=== PATIENT | female | born 1990 | race Caucasian/White ===

== ENCOUNTER → 2017-02-26 | Outpatient (CLI) | payer BC ==
[~2017-02-26] MED LIST: FOLITAB13 PO; LEVO1IUD PV; PYRI100T4 PO; SPRN100 PO; VITA1TAB7 PO; VITACAP26 PO
== END | disposition home or self-care (01) ==
LOC: C.PATHSPEC 14:23
PROVIDERS: ATTEND Obstetrics & Gynecology
DX: R87.610 Atypical squamous cells of undetermined significance on cytologic smear of cervix (ASC-US) (principal); N87.0 Mild cervical dysplasia

== ENCOUNTER → 2017-08-08 | Outpatient (CLI) | payer BC | END | disposition home or self-care (01) | LOC: C.PAPS 11:44 | PROVIDERS: ATTEND Obstetrics & Gynecology | DX: Z01.419 Encounter for gynecological examination (general) (routine) without abnormal findings (principal) ==

== ENCOUNTER → 2017-08-15 | Outpatient (CLI) | payer BC | END | disposition home or self-care (01) | LOC: C.PATHSPEC 09:52 | PROVIDERS: ATTEND Obstetrics & Gynecology | DX: R87.810 Cervical high risk human papillomavirus (HPV) DNA test positive (principal) ==

== ENCOUNTER → 2017-10-10 | Day surgery (SDC) | payer BC ==
[2017-09-16 11:23] VITALS: Ht 170.2 cm; Wt 79.5 kg
[~2017-10-10] VITALS: Ht 170.2 cm; Wt 79.5 kg
[~2017-10-10] MED LIST changes: +ACETIC ACID 4% (WHITE VINEGAR) 30ML ONE; +ATROPINE SULFATE 0.1 MG/ML 5ML SYR IV PRN; +DEXAMETHASONE SOD INJ 4 MG/ML VIAL ONE; +EpHEDrine SULFATE INJ 50 MG/ML AMP IV PRN; +FENTANYL CITRATE INJ 50 MCG/1 ML 2 ML VIAL IV PRN; +FENTANYL CITRATE INJ 50 MCG/1 ML 2 ML VIAL ONE; +FERRIC SUBSULFATE 8 GM VIAL ONE; +IBUPROFEN 200 MG TAB ONE; +IBUPROFEN 600 MG TAB PO PRN; +IODINE SOLN STRONG 14 ML ONE; +KETOROLAC TROMETHAMINE 30 MG/ML VIAL IV. PRN; +LACTATED RINGER'S 1000ML 1,000 ML IV SCH; +LIDO 2%/EPINEPHRINE 1:100000 20 ML VIAL INFIL ONE; +LIDOCAINE HCL 2% 2 ML VIAL (20MG/ML) ONE; +MIDAZOLAM HCL 1 MG/ML 2ML VIAL ONE; +ONDANSETRON INJ 2 MG/ML 2 ML VIAL IV PRN; +ONDANSETRON INJ 2 MG/ML 2 ML VIAL ONE; +OXYCODONE/ACETAMINOPHEN 5-325 TAB PO PRN; +PROPOFOL IV EMULSION 10 MG/ML 20 ML VIAL IV ONE; +SODIUM CHLORIDE 0.9% 1000ML 1,000 ML IV SCH
--- NOTE | 2017-10-10 07:11 | History & Physical Bridge - [place] ---
H&P Re-Evaluation Bridge Note: I have examined the patient, reviewed the History & Physical and in the interval since the performance of the History & Physical I have noted the following changes of clinical significance: No changes noted
--- NOTE | 2017-10-10 07:44 | [facility] Operative Report ---
Operative Report Operative Date Oct 10, 2017. Pre-Operative Diagnosis ASCUS, positive HR HPV pap smear. Positive endocervical curettage. Post-Operative Diagnosis same Procedure(s) Performed LEEP, ECC above LEEP Surgeon Elias Planting Material Remover Surgeon(s) none Estimated Blood Loss 0 Findings No acetowhite changes noted on the ectocervix. IUD string seen. Small amount of nonstaining area at the ectocervix noted after Lugol's application. Fluids 400 Specimens #1 LEEP #2 ECC above LEEP Drains none Anesthesia Gen. Complication(s) None Disposition Recovery Room / PACU Indications 27-year-old with a 2 year history of abnormal Pap smears with colposcopic findings to include atypia of endocervical specimen. Last specimen included atypia of the endocervical curettage and patient desired further evaluation with LEEP procedure. Due to her anxiety she requested it be done under anesthesia. Description of Procedure The patient was taken to the operating room and identified. After adequate general anesthesia was obtained she was placed in the dorsolithotomy position. A colposcopy was performed. No acetowhite changes of the ectocervix were noted. Lugol's was used to stain the ectocervix in order to identify margins for the planned LEEP. The cervix was circumferentially injected with 2% lidocaine with epinephrine if approximately 10 cc. The LEEP then took place in 1 pass. An ECC was performed above the LEEP. These were sent as separate specimens. The LEEP bed was cauterized with ball cautery and Monsel's was applied. Hemostasis was excellent. The procedure was terminated. The patient was returned to supine position and awoken from anesthesia and transported to the recovery room in stable condition. All sponge lap and needle counts were correct 2 I attest to the content of the Intraoperative Record and any orders documented therein. Any exceptions are noted below.
--- NOTE | 2017-10-10 07:46 | Discharge Instructions ---
Discharge Instructions Date of Service Oct 10, 2017. Admission Reason for Admission: Cervical High Risk Human Papillomavirus Test Discharge Discharge Diagnosis / Problem: after surgery Discharge Goals Goal(s): Routine recovery after surgery Activity Recommendations Activity Limitations: as noted below . Instructions / Follow-Up Instructions / Follow-Up ACTIVITY RECOMMENDATIONS: * Avoid tampons, douching, hot tubs, pools, and intercourse until bleeding has stopped and you are seen in the office for followup. * May shower as usual. * No strenuous activity for 24-48 hours. After 24-48 hours, you may do anything you feel like doing (driving and sports are okay). SPECIAL CARE INSTRUCTIONS: Special Diet: * Mild nausea may occur in the immediate post-operative period. * Take clear liquids such as tea, cola or bouillon until all nausea has subsided; you may then resume your normal diet. Special Care: * Light bleeding and vaginal spotting can last from a few days to 3-4 weeks. Call your doctor if bleeding becomes heavier than the heaviest part of your period. * Check your temperature twice a day for one week. If it goes above 100.4 degrees Fahrenheit (38.0 Celsius), notify your doctor. * Plan your followup appointment for 10/21 at 245pm. Call the office if you need to change this appointment. FOLLOW-UP VISIT: See above. Current Hospital Diet Patient's current hospital diet: Discharge Diet Recommended Diet: Regular Diet Procedures Procedures Performed: LEEP, ECC above LEEP Pending Studies Studies pending at discharge: yes List of pending studies: pathology Medical Emergencies . Who to Call and When: Medical Emergencies: If at any time you feel your situation is an emergency, please call 911 immediately. . Non-Emergent Contact Non-Emergency issues call your: [employer]er . . "Provider Documentation" section prepared by Shilpa Griffin. . VTE Core Measure Inpt VTE Proph given/why not?: Treatment not indicated
[2017-10-10 08:31] VITALS: TEMP 36.4
--- NOTE | 2017-10-10 08:31 | Anesthesia Progress Nt - [facility] ---
Anesthesia Post Op Note Date & Time Oct 10, 2017 at 08:31 Vital Signs Pain Intensity: 4 Vital Signs Past 12 Hours Date Time Temp Pulse Resp B/P (MAP) Pulse Ox O2 Delivery O2 Flow Rate FiO2 10/10/17 08:10 97/79 10/10/17 08:07 77 20 10/10/17 08:07 77 20 98 10/10/17 08:06 76 13 10/10/17 08:06 80 13 97 10/10/17 08:06 36.7 75 16 114/55 97 Room Air 10/10/17 08:05 114/55 10/10/17 08:01 72 15 10/10/17 08:01 72 15 100 10/10/17 08:00 116/64 10/10/17 07:57 70 10 10/10/17 07:57 70 10 100 10/10/17 07:55 108/62 10/10/17 07:52 80 16 100 10/10/17 07:52 83 16 10/10/17 07:50 99/65 10/10/17 07:47 14 10/10/17 07:47 88 14 10/10/17 07:45 114/72 10/10/17 07:42 88 21 10/10/17 07:42 104 21 105/66 100 10/10/17 07:42 37.0 92 20 105/66 100 Diffusion Mask 10 10/10/17 06:25 36.6 96 16 108/74 (85) 98 Room Air Notes Mental Status: alert / awake / arousable, participated in evaluation Pt Amnestic to Procedure: Yes Nausea / Vomiting: adequately controlled Pain: adequately controlled Airway Patency, RR, SpO2: stable & adequate BP & HR: stable & adequate Hydration State: stable & adequate Anesthetic Complications: no major complications apparent
[2017-10-10 08:48] VITALS: BP 112/75; PULSE 68; O2SAT 100
== END | disposition home or self-care (01) ==
LOC: X.SURG 06:12
PROVIDERS: ATTEND Obstetrics & Gynecology
DX: N72 Inflammatory disease of cervix uteri (principal); R87.810 Cervical high risk human papillomavirus (HPV) DNA test positive; Z01.411 Encounter for gynecological examination (general) (routine) with abnormal findings